=== PATIENT | female | born 1995 | race Two or more races ===

== ENCOUNTER 2023-06-27 11:02 | Observation (INO) | payer OTHER | END 2023-06-27 12:19 | disposition home or self-care (01) | LOC: LDRP 11:02 | PROVIDERS: ADMIT Obstetrics & Gynecology; ATTEND Obstetrics & Gynecology | DX: O41.03X0 Oligohydramnios, third trimester, not applicable or unspecified (principal); Z3A.39 39 weeks gestation of pregnancy | CPT/HCPCS: 59025; 76818; 81002; 94760; G0378 ==

== ENCOUNTER 2023-06-29 08:55 | Observation (INO) | payer OTHER ==
[2023-06-29] MEDS ORDERED: PREN-96 PO (09:49)
== END 2023-06-29 10:24 | disposition home or self-care (01) ==
LOC: LDRP 08:55
PROVIDERS: ADMIT Obstetrics & Gynecology; ATTEND Obstetrics & Gynecology
DX: O41.03X0 Oligohydramnios, third trimester, not applicable or unspecified (principal); Z3A.39 39 weeks gestation of pregnancy
CPT/HCPCS: 59025; 76818; 81002; G0378

== ENCOUNTER 2023-07-01 07:50 | Observation (INO) | payer OTHER ==
[~2023-07-01 07:50] MED LIST: PREN-96 PO
== END 2023-07-01 09:10 | disposition home or self-care (01) ==
LOC: LDRP 07:50 → UNDOADMOB 07:50 → LDRP 08:10 → UNDODISOB 09:10
PROVIDERS: ADMIT Obstetrics & Gynecology; ATTEND Obstetrics & Gynecology
DX: O48.0 Post-term pregnancy (principal); O41.03X0 Oligohydramnios, third trimester, not applicable or unspecified; O62.9 Abnormality of forces of labor, unspecified; Z3A.40 40 weeks gestation of pregnancy
CPT/HCPCS: 59025; 76818; 81002; 94760; G0378

== ENCOUNTER 2023-07-02 17:00 | Inpatient (IN) | payer OTHER ==
[~2023-07-02] VITALS: Ht 160 cm; Wt 83.9 kg
[2023-07-02] MEDS ORDERED: DERMOPLAST 60ML BOTTLE TOP PRN (17:15)
[2023-07-02] MEDS ORDERED: PHISODERM TOP SOLN 240ML BTL TOP PRN (17:15)
[2023-07-02] MEDS ORDERED: LIDOCAINE 2%HCL (LOCAL ANESTH.) INJ 20ML MDV IJ PRN (17:15)
[2023-07-02] MEDS ORDERED: WITCH HAZEL-GLYCERIN PAD TOP PRN (17:15)
[2023-07-02] MEDS ORDERED: PROMETHAZINE HCL 25 MG/ML 1ML IV PRN (17:15)
[2023-07-02 17:46] VITALS: BP 122/77; PULSE 95; RESP 16; TEMP 98.2; O2SAT 97
[2023-07-02 18:07] LABS: Basophils # (auto) 0 10 ^3/uL (0-0.2); Basophils % (auto) 0.2 % (0.0-2.0); Eosinophils # (auto) 0 10 ^3/uL (0-0.8); Eosinophils % (auto) 0.4 % (0.0-7.0); Hematocrit 35.7 % (36.0-46.0); Hemoglobin 12.2 g/dL (12.2-16.2); Lymphocytes # (auto) 2.1 10 ^3/uL (0.4-5.4); Lymphocytes % (auto) 20.4 % (10.0-50.0); Mean Corpuscular Hemoglobin 28.3 pg (28.0-32.0); Mean Corpuscular Hgb Conc. 34.1 g/dL (32.0-36.0); Mean Corpuscular Volume 82.9 fL (80.0-100.0); Monocytes # (auto) 0.7 10 ^3/uL (0-1.3); Monocytes % (auto) 6.9 % (0.0-12.0); Neutrophils # (auto) 7.3 10 ^3/uL (1.6-8.6); Neutrophils % (auto) 72.1 % (37.0-80.0); Nucleated Red Blood Cells % 0.1 %; Red Blood Cells 4.31 10^6/uL (4.0-5.20); White Blood Cell 10.2 10^3/uL (4.4-10.8)
[2023-07-02 18:16] LABS: Urine Bacteria MANY /hpf (None Seen); Urine Blood 3+ /uL (Negative); Urine Clarity HAZY (Clear); Urine Color Colorless (Yellow); Urine Protein, UAD Negative (Negative); Urine Specific Gravity 1.006 (1.001-1.035); Urine Urobilinogen Normal (Negative); Urine WBC 35 /hpf (0 - 5); Urine WBC Clumps PRESENT /hpf (None Seen); Urine pH 6.5 (5.0-8.0)
[2023-07-02 18:21] LABS: INR 0.89 (0.9-1.15); Partial Thromboplastin Time 25.2 SEC (24.5-34.5); Prothrombin Time 9.4 sec (9.3-11.8)
[2023-07-02 18:45] LABS: Amphetamine Screen, Urine Neg (NEGATIVE)
[2023-07-02 18:47] LABS: Barbiturate Scree,Urine Neg (NEGATIVE); Benzodiazephine Screen, Urine Neg (NEGATIVE); Cocaine Screen, Urine Neg (NEGATIVE); Opiate Scree,Urine Neg (NEGATIVE); Phencyclidine Screen, Urine Neg (NEGATIVE)
[2023-07-02 18:48] LABS: Cannabinoid Screen, Urine Neg (NEGATIVE)
[2023-07-02 18:48] LABS: Alanine Aminotransferase 12 U/L (7-40); Alkaline Phosphatase 120 U/L (46-116); Anion Gap 8 (5-15); BUN/Creatinine Ratio 6.5 (10.0-20.0); Bilirubin, Total 0.3 mg/dL (0.2-1.0); Blood Urea Nitrogen 5 mg/dL (9-23); Calcium 9.4 mg/dL (8.5-10.1); Carbon Dioxide 24 mmol/L (20-30); Chloride 105 mmol/L (98-107); Glucose 87 mg/dL (74-106); Potassium 3.6 mmol/L (3.5-5.1); Sodium 137 mmol/L (136-145); Total Protein 6.6 g/dL (5.7-8.2)
[2023-07-02 18:59] LABS: Aspartate Aminotransferase 19 U/L (13-40)
[2023-07-02] MEDS: miSOPROStol 50 MCG per PRE-CUT 1/2 TAB PO PRN (20:30)
[2023-07-02] MEDS: LACTATED RINGER'S 1,000 ML IV SCH (22:01)
[2023-07-03] VITALS (11 sets, daily range): BP systolic 100–120; BP diastolic 57–78; PULSE 65–76; RESP 11–18; TEMP 99; O2SAT 96–100
[2023-07-03] MEDS: miSOPROStol 50 MCG per PRE-CUT 1/2 TAB PO PRN (00:35)
[2023-07-03] MEDS: LACTATED RINGER'S 1,000 ML IV SCH ×3 (06:11→23:26)
[2023-07-03] MEDS ORDERED: LACT. RINGERS/OXYTOCIN 20UNITS 500 ML IV ONE ×2 (08:00→08:30)
[2023-07-03] MEDS ORDERED: ePHEDrine SULFATE 50 MG/ML AMP IV ONE (08:00)
[2023-07-03] MEDS ORDERED: NALOXONE HCL 0.4 MG/ML VIAL IV ONE (08:00)
[2023-07-03] MEDS ORDERED: TERBUTALINE SULFATE 1 MG/ML 1ML VIAL SC PRN (08:00)
[2023-07-03] MEDS ORDERED: LACTATED RINGER'S 1,000 ML IV ONE (08:00)
[2023-07-03] MEDS ORDERED: fentaNYL CITRATE 100 MCG/2 ML VL IV ONE (08:00)
[2023-07-03] MEDS ORDERED: fentaNYL 400mCg/200ml W ROPIVA 200 ML EPI SCH (08:00)
[2023-07-03] MEDS ORDERED: LACT. RINGERS/OXYTOCIN 20UNITS 1,000 ML IV SCH (08:00)
[2023-07-03] MEDS ORDERED: ROPIVACAINE HCL 100 ML ONE (08:01)
[2023-07-03] MEDS ORDERED: ROPIVACAINE 0.5% (5MG/ML) 20ML AMPULE IJ ONE (08:15)
[2023-07-03] MEDS ORDERED: ceFAZolin 1GM/50ML 100 ML IV ONE (15:06)
[2023-07-03] MEDS ORDERED: DOCU-94 PO (15:19)
[2023-07-03] MEDS ORDERED: HYDR-4902 PO (15:19)
[2023-07-03] MEDS ORDERED: ONDANSETRON HCL 4 MG/2 ML VIAL IV PRN ×3 (15:30→18:00)
[2023-07-03] MEDS ORDERED: LACT. RINGERS/OXYTOCIN 20UNITS 1,000 ML IV ONE (15:30)
[2023-07-03] MEDS ORDERED: ceFAZolin 1GM/50ML 50 ML IV SCH ×2 (15:30→18:00)
[2023-07-03] MEDS ORDERED: MORPHINE SULF PF 5 MG/10 ML VIAL ONE (15:40)
[2023-07-03] MEDS ORDERED: LIDOCAINE HCL 2 %PF INJ 10ML AMP IJ ONE (15:40)
[2023-07-03] MEDS ORDERED: fentaNYL CITRATE 100 MCG/2 ML VL ONE (15:41)
[2023-07-03] MEDS ORDERED: MIDAZOLAM HCL 2MG/2ML 2ml VIAL (1mg/ml) ONE (15:42)
[2023-07-03] MEDS ORDERED: CARBOPROST TROMETHAMINE 250 MCG/1ML VIAL IM ONE (15:58)
[2023-07-03] MEDS ORDERED: NALOXONE HCL 0.4 MG/ML VIAL IV PRN (16:15)
[2023-07-03] MEDS ORDERED: HYDROmorphone HCL 2 MG/ML VL/or syr IV PRN (16:15)
[2023-07-03] MEDS ORDERED: diphenhdrAMINE HCL 50 MG/1 ML VL IV PRN (16:15)
[2023-07-03] MEDS ORDERED: ePHEDrine SULFATE 50 MG/ML AMP IV PRN ×2 (16:15→18:00)
[2023-07-03] MEDS ORDERED: MIDAZOLAM HCL 2MG/2ML 2ml VIAL (1mg/ml) IV PRN (16:15)
[2023-07-03] MEDS ORDERED: LABETALOL HCL 5 MG/ML 4ML SYRINGE IV PRN (16:15)
[2023-07-03] MEDS ORDERED: ACETAMINOPHEN IV 1000 MG/100ML (10MG/ML) IV PRN (18:00)
[2023-07-03] MEDS ORDERED: GUM (CHEWING) 1 GUM CHEW CHEW ONE (18:00)
[2023-07-03 22:42] LABS: Basophils # (auto) 0 10 ^3/uL (0-0.2); Basophils % (auto) 0.2 % (0.0-2.0); Eosinophils # (auto) 0 10 ^3/uL (0-0.8); Eosinophils % (auto) 0.1 % (0.0-7.0); Hematocrit 33.1 % (36.0-46.0); Lymphocytes # (auto) 2.1 10 ^3/uL (0.4-5.4); Lymphocytes % (auto) 11.2 % (10.0-50.0); Mean Corpuscular Hemoglobin 27.7 pg (28.0-32.0); Mean Corpuscular Hgb Conc. 33.1 g/dL (32.0-36.0); Mean Corpuscular Volume 83.7 fL (80.0-100.0); Monocytes # (auto) 1.3 10 ^3/uL (0-1.3); Monocytes % (auto) 7.2 % (0.0-12.0); Neutrophils % (auto) 81.3 % (37.0-80.0); Red Blood Cells 3.95 10^6/uL (4.0-5.20); Red Cell Distribution Width 14.2 % (11.8-14.3); White Blood Cell 18.4 10^3/uL (4.4-10.8)
[2023-07-03] MEDS: ceFAZolin 1GM/50ML 50 ML IV SCH (23:27)
[2023-07-04] VITALS (23 sets, daily range): BP systolic 100–129; BP diastolic 56–79; PULSE 65–128; RESP 17–20; TEMP 98–103.2; O2SAT 93–100
[2023-07-04] MEDS ORDERED: HYDROmorphone HCL 2 MG/ML VL/or syr IV PRN (00:25)
[2023-07-04] MEDS ORDERED: MORPHINE SULFATE INJ 2 MG/ml SYRG IV PRN (00:45)
[2023-07-04] MEDS: LACTATED RINGER'S 1,000 ML IV SCH ×2 (01:15→18:23)
[2023-07-04] MEDS: ACETAMINOPHEN IV 1000 MG/100ML (10MG/ML) IV PRN ×2 (03:39→11:50)
[2023-07-04 05:29] LABS: Basophils # (auto) 0 10 ^3/uL (0-0.2); Basophils % (auto) 0.1 % (0.0-2.0); Eosinophils # (auto) 0 10 ^3/uL (0-0.8); Eosinophils % (auto) 0.1 % (0.0-7.0); Hematocrit 37.3 % (36.0-46.0); Lymphocytes # (auto) 1.6 10 ^3/uL (0.4-5.4); Lymphocytes % (auto) 8.3 % (10.0-50.0); Mean Corpuscular Hemoglobin 28.2 pg (28.0-32.0); Mean Corpuscular Hgb Conc. 32.2 g/dL (32.0-36.0); Mean Corpuscular Volume 87.7 fL (80.0-100.0); Monocytes # (auto) 1.5 10 ^3/uL (0-1.3); Monocytes % (auto) 7.5 % (0.0-12.0); Neutrophils # (auto) 16.4 10 ^3/uL (1.6-8.6); Red Blood Cells 4.26 10^6/uL (4.0-5.20); Red Cell Distribution Width 14.5 % (11.8-14.3); White Blood Cell 19.5 10^3/uL (4.4-10.8)
[2023-07-04 07:07] LABS: RPR Non Reactive (Non Reactive)
[2023-07-04] MEDS: ceFAZolin 1GM/50ML 50 ML IV SCH ×2 (07:22→15:26)
[2023-07-04] MEDS ORDERED: KETOROLAC TROMETH 30 MG/ML 1ML VIAL IV PRN (10:15)
[2023-07-04] MEDS ORDERED: BISACODYL 10 MG RECT SUPP PR PRN (15:00)
[2023-07-04] MEDS ORDERED: HYDROcodone-ACET 5/325MG TAB PO PRN (15:00)
[2023-07-04] MEDS: IBUPROFEN 800 MG TAB PO PRN (17:36)
[2023-07-04] MEDS: SIMETHICONE 80 MG CHEWABLE TABLET PO SCH ×2 (17:50→21:58)
[2023-07-04] MEDS: HYDROcodone-ACET 5/325MG TAB PO PRN (17:50)
[2023-07-04] MEDS ORDERED: PIPERACILLIN-TAZOB 3.375GM 100 ML IV ONE (18:00)
[2023-07-04 19:25] LABS: Basophils # (auto) 0 10 ^3/uL (0-0.2); Basophils % (auto) 0.2 % (0.0-2.0); Eosinophils # (auto) 0 10 ^3/uL (0-0.8); Hematocrit 32.3 % (36.0-46.0); Hemoglobin 10.6 g/dL (12.2-16.2); Lymphocytes # (auto) 0.8 10 ^3/uL (0.4-5.4); Lymphocytes % (auto) 7.1 % (10.0-50.0); Mean Corpuscular Hemoglobin 27.8 pg (28.0-32.0); Mean Corpuscular Volume 84.4 fL (80.0-100.0); Monocytes # (auto) 0.7 10 ^3/uL (0-1.3); Monocytes % (auto) 5.9 % (0.0-12.0); Neutrophils # (auto) 9.6 10 ^3/uL (1.6-8.6); Neutrophils % (auto) 86.8 % (37.0-80.0); Red Blood Cells 3.82 10^6/uL (4.0-5.20); Red Cell Distribution Width 14.3 % (11.8-14.3); White Blood Cell 11.1 10^3/uL (4.4-10.8)
[2023-07-04] MEDS ORDERED: IBUP-1455 PO (20:34)
[2023-07-04] MEDS ORDERED: FERR30CA PO (20:34)
[2023-07-04] MEDS: DOCUSATE SOD 100 MG CAP PO SCH (21:58)
[2023-07-05] VITALS (7 sets, daily range): BP systolic 118–136; BP diastolic 71–88; PULSE 72–90; RESP 16–18; TEMP 97.6–100.3; O2SAT 95–97
[2023-07-05] MEDS: PIPERACILLIN-TAZOB 3.375GM 100 ML IV SCH ×4 (00:38→18:55)
[2023-07-05] MEDS: HYDROcodone-ACET 5/325MG TAB PO PRN ×5 (00:49→20:11)
[2023-07-05] MEDS: SIMETHICONE 80 MG CHEWABLE TABLET PO SCH ×4 (06:19→22:10)
[2023-07-05] MEDS: IBUPROFEN 800 MG TAB PO PRN ×2 (06:29→15:10)
[2023-07-05] MEDS: DOCUSATE SOD 100 MG CAP PO SCH ×2 (09:43→22:10)
[2023-07-05] MEDS ORDERED: DOCUSATE CALCIUM 240 MG CAP PO SCH (10:00)
[2023-07-05 19:06] LABS: Treponema pallidum Ab (FTA-Ab) Non Reactive (Non Reactive)
[2023-07-06] MEDS: IBUPROFEN 800 MG TAB PO PRN (00:07)
[2023-07-06] MEDS: PIPERACILLIN-TAZOB 3.375GM 100 ML IV SCH ×2 (00:08→05:31)
[2023-07-06 03:16] VITALS: BP 106/62; PULSE 69; RESP 16; TEMP 97.6; O2SAT 96
[2023-07-06] MEDS: SIMETHICONE 80 MG CHEWABLE TABLET PO SCH (05:31)
[2023-07-06 07:00] VITALS: BP 114/71; PULSE 67; RESP 17; TEMP 98.2; O2SAT 96
== END 2023-07-06 09:05 | disposition home or self-care (01) | DRG 787 ==
LOC: LDRP 17:00
PROVIDERS: ADMIT Obstetrics & Gynecology; ATTEND Obstetrics & Gynecology
PROC: 10D00Z1 Extraction of Products of Conception, Low, Open Approach (ICD-10-PCS; principal; 2023-07-03 15:36)
DX: O41.03X0 Oligohydramnios, third trimester, not applicable or unspecified (principal); O86.4 Pyrexia of unknown origin following delivery; O48.0 Post-term pregnancy; O76 Abnormality in fetal heart rate and rhythm complicating labor and delivery; O61.9 Failed induction of labor, unspecified; O90.81 Anemia of the puerperium; D64.9 Anemia, unspecified; Z37.0 Single live birth; Z3A.40 40 weeks gestation of pregnancy
CPT/HCPCS: 36415; 59025; 62282; 80053; 80307; 81001; 81002; 85025; 85610; 85730; 86592; 86850; 86900; 86901; 94760; 96360; 96361; 96365; 96366; G0378; J0131; J0690; J1885; J2250; J2543; J2590